=== PATIENT | female | born 1985 | race Hispanic/Latino ===

== ENCOUNTER 2017-08-26 13:46 | Emergency (ER) | payer BC ==
[2017-08-26] MEDS ORDERED: HYDROcodone/Acetaminophen 5/325 mg Tablet ONE (15:11)
--- NOTE | 2017-08-26 16:48 | RAD ---
SI JOINT THREE VIEWS: History: 31-year-old female with history of back pain. FINDINGS: The SI joints are unremarkable bilaterally. No evidence of ankylosis or bony, erosive, or destructive changes. No evidence for acute fracture or dislocation. IMPRESSION: Unremarkable SI joints. POS: [facility]
== END 2017-08-26 15:20 | disposition home or self-care (01) ==
LOC: ERS 13:46
DX: M54.5 Low back pain (principal)
CPT/HCPCS: 72202

== ENCOUNTER 2017-08-28 09:10 | Emergency (ER) | payer BC ==
[2017-08-28] MEDS ORDERED: Ondansetron ODT 4 MG TAB ONE (09:56)
[2017-08-28] MEDS ORDERED: Ketorolac Tromethamine 30 MG/ML VIAL ONE (09:56)
[2017-08-28] MEDS ORDERED: Morphine 4 MG/ML VIAL ONE (09:56)
[2017-08-28 10:01] LABS: Bilirubin Negative (Negative); Blood, Urine Moderate (Negative); Clarity CLEAR (Clear); Glucose, Urine (Dipstick) Negative (Negative); Leukocyte Negative (Negative); Nitrite Negative (Negative); Protein, Urine (Dipstick) Negative (Neg-Trace); Specific Gravity, Urine 1.023 (1.002-1.036); Urobilinogen 0.2 mg/dL (0.2-1.0)
[2017-08-28 10:02] LABS: Bacteria/HPF Rare-Few HPF (None Seen); Hyaline Casts/LPF 0-3 HYALINE CAST LPF (0-3 Hyaline); Pathc Cast-AUWi Flag 0.58 (0-2.49); Pregnancy Test - Urine (BHCG) Negative (Negative); WBC/HPF 0-3 HPF (0-3)
[2017-08-28 10:03] LABS: Specific Gravity 1.023 (1.002-1.036)
[2017-08-28 10:04] LABS: Pregu Control Background? CLEAR/WHITE (CLR/WHITE); Pregu Control Bar Appear? YES (CONTROL BAR)
--- NOTE | 2017-08-28 10:41 | RAD ---
LUMBAR SPINE 3 VIEWS: Date: 08/28/17 HISTORY: Low back pain. FINDINGS: Six lumbar-type vertebrae are apparent. Vertebral body heights and alignment are maintained. End plat e irregularity on the lateral view is somewhat pronounced for the patient's age. There is mild osteop hytosis. No acute fracture or dislocation. IMPRESSION: 1. Mild degenerative changes. No acute osseous abnormalities are demonstrated. 2. Six lumbar-type vertebrae. Care must be taken when assigning numbering on cross-sectional imaging . POS: [facility]
== END 2017-08-28 11:27 | disposition home or self-care (01) ==
LOC: ERS 09:10
DX: M54.5 Low back pain (principal)
CPT/HCPCS: 72100; 81003; 81015; 81025; 96372; J1885; J2270; Q0162